=== PATIENT | male | born 1950 | race Caucasian/White ===

== ENCOUNTER 2023-10-03 21:05 | Observation (INO) | payer OTHER ==
[2023-10-03 22:05] LABS: VENOUS O2 SATURATION 91.8 % (70-80); VENOUS PH 7.382 (7.310-7.410)
[2023-10-03 22:07] LABS: BASO % 0.4 % (0-2.0); EOS % 0.1 % (0-4.5); HEMATOCRIT 47.4 % (35.4-49); HEMOGLOBIN 15.6 GM/dL (11.7-16.9); MCH 29.8 pg (25.7-33.7); MCHC 32.8 g/dl (32.0-35.9); MEAN CELL VOLUME 90.6 fl (80-96); MEAN PLT VOLUME 9.2 fl (7.5-11.1); NEUT % 69.5 % (42.8-82.8); PLATELET COUNT 208 10^3/uL (134-434); RBC 5.23 M/mm3 (4.00-5.60); RDW 14.2 % (11.9-15.9); WHITE BLOOD COUNT 7.7 K/mm3 (4.0-10.0)
[2023-10-03 22:16] LABS: INR 0.98 (0.83-1.09); PROTHROMBIN TIME (PATIENT) 11.1 SEC (9.7-13.0)
[2023-10-03 22:19] LABS: ACTIVATED PTT 31.1 SECONDS (25.2-36.5)
[2023-10-03 22:29] LABS: POTASSIUM 4.4 mmol/L (3.5-5.1)
[2023-10-03 22:30] LABS: CALCIUM 10.1 mg/dL (8.5-10.1)
[2023-10-03 22:31] LABS: ALBUMIN 4.1 g/dl (3.4-5.0); BLOOD UREA NITROGEN 25.5 mg/dL (7-18); MAGNESIUM 1.8 mg/dL (1.8-2.4)
[2023-10-03 22:34] LABS: CREATININE 1.9 mg/dL (0.55-1.3)
[2023-10-03 22:36] LABS: BILIRUBIN,TOTAL 0.6 mg/dL (0.2-1)
[2023-10-03] MEDS ORDERED: DEXAMETHASONE SOD PHOSPHATE 10 MG/1 ML VIAL ONE (22:49)
[2023-10-03] MEDS: DEXAMETHASONE SOD PHOSPHATE 20 MG/5 ML VIAL IVPB ONE (22:53)
[2023-10-03] MEDS: SODIUM CHLORIDE 0.9% 500 ML INFUS.BAG IV ONE (23:31)
[2023-10-04 00:17] LABS: PH,URINE 5.5 (5.0-8.0); URINE APPEARANCE CLEAR; URINE BILIRUBIN NEGATIVE (NEGATIVE); URINE COLOR YELLOW; URINE GLUCOSE (UA) 3+ (NEGATIVE); URINE KETONE 1+ (NEGATIVE); URINE LEUK ESTERASE NEGATIVE (NEGATIVE); URINE NITRITE NEGATIVE (NEGATIVE); URINE PROTEIN TRACE (NEGATIVE); URINE UROBILINOGEN 0.2 mg/dL (0.2-1.0)
[2023-10-04] MEDS: LACTATED RINGERS SOLUTION 1,000 ML/1,000 ML INFUS.BAG IV SCH (02:45)
[2023-10-04] MEDS: REMDESIVIR 200 MG in SODIUM CHLORIDE 250 ML IVPB ONE (04:03)
[2023-10-04] MEDS: HEPARIN NA (PORCINE) 5,000 UNITS/ML 1ML VIAL SQ SCH (06:28)
[2023-10-04] MEDS: INSULIN ASPART SLIDING SCALE (NOVOLOG) 1 VIAL SQ SCH (06:29)
[2023-10-04] MEDS: INSULIN (NOVOLOG) ASPART 100 UNITS/ML 10ML VIAL SQ SCH ×2 (06:29→11:43)
[2023-10-04 06:46] LABS: BASO % 0.4 % (0-2.0); HEMATOCRIT 43.3 % (35.4-49); HEMOGLOBIN 14.3 GM/dL (11.7-16.9); LYMPH % 16.4 % (8-40); MCH 29.8 pg (25.7-33.7); MEAN CELL VOLUME 90.3 fl (80-96); MEAN PLT VOLUME 9.6 fl (7.5-11.1); MONO % 2.9 % (3.8-10.2); NEUT % 80.3 % (42.8-82.8); PLATELET COUNT 177 10^3/uL (134-434); RBC 4.79 M/mm3 (4.00-5.60); RDW 14.4 % (11.9-15.9); WHITE BLOOD COUNT 5.7 K/mm3 (4.0-10.0)
[2023-10-04 06:50] LABS: POTASSIUM 4.8 mmol/L (3.5-5.1)
[2023-10-04 06:54] LABS: CALCIUM 9.1 mg/dL (8.5-10.1)
[2023-10-04 06:55] LABS: ALBUMIN 3.5 g/dl (3.4-5.0); BLOOD UREA NITROGEN 30.4 mg/dL (7-18)
[2023-10-04 06:56] LABS: MAGNESIUM 1.7 mg/dL (1.8-2.4)
[2023-10-04 06:58] LABS: CREATININE 1.9 mg/dL (0.55-1.3); PHOSPHOROUS 3.1 mg/dL (2.5-4.9)
[2023-10-04 06:59] LABS: BILIRUBIN,TOTAL 0.4 mg/dL (0.2-1); TOT PROT 6.8 g/dl (6.4-8.2)
[2023-10-04] MEDS: FINASTERIDE 5 MG TABLET (FP) PO SCH (09:57)
[2023-10-04] MEDS: TAMSULOSIN HCL 0.4 MG CAP PO SCH (09:57)
[2023-10-04] MEDS: LABETALOL HCL 100 MG TABLET (FP) PO SCH (09:57)
[2023-10-04] MEDS ORDERED: INSULIN (NOVOLOG) ASPART 100 UNITS/ML 10ML VIAL ONE ×2 (11:41→16:51)
[2023-10-04 17:25] VITALS: BMI 27.7
[2023-10-04] MEDS: INSULIN (LEVEMIR) 100 UNITS/ML UNITS SQ SCH (21:15)
[2023-10-04] MEDS: DEXAMETHASONE SOD PHOSPHATE 10 MG/1 ML VIAL IVPUSH SCH ×2 (21:15→21:56)
[2023-10-04] MEDS: DONEPEZIL HCL 5 MG TABLET (FP) PO SCH (21:19)
[2023-10-04] MEDS: ROSUVASTATIN CA 40 MG TABLET PO SCH (21:19)
[2023-10-04 21:49] LABS: URINE APPEARANCE CLEAR; URINE BILIRUBIN NEGATIVE (NEGATIVE); URINE COLOR YELLOW; URINE GLUCOSE (UA) 3+ (NEGATIVE); URINE KETONE TRACE (NEGATIVE); URINE LEUK ESTERASE NEGATIVE (NEGATIVE); URINE NITRITE NEGATIVE (NEGATIVE); URINE PROTEIN NEGATIVE (NEGATIVE); URINE UROBILINOGEN 0.2 mg/dL (0.2-1.0)
[2023-10-04] MEDS ORDERED: SIMETHICONE 40 MG/0.6 ML BOTTLE PO ONE (23:45)
[2023-10-05 07:45] LABS: BASO % 0.1 % (0-2.0); HEMATOCRIT 43.5 % (35.4-49); HEMOGLOBIN 14.6 GM/dL (11.7-16.9); LYMPH % 14.6 % (8-40); MCHC 33.5 g/dl (32.0-35.9); MEAN CELL VOLUME 89.5 fl (80-96); MEAN PLT VOLUME 9.8 fl (7.5-11.1); MONO % 4.4 % (3.8-10.2); NEUT % 80.9 % (42.8-82.8); PLATELET COUNT 190 10^3/uL (134-434); RBC 4.86 M/mm3 (4.00-5.60); RDW 14.3 % (11.9-15.9)
[2023-10-05 07:56] LABS: POTASSIUM 4.4 mmol/L (3.5-5.1)
[2023-10-05 07:58] LABS: CALCIUM 8.9 mg/dL (8.5-10.1)
[2023-10-05 07:59] LABS: ALBUMIN 3.4 g/dl (3.4-5.0); BLOOD UREA NITROGEN 43.8 mg/dL (7-18)
[2023-10-05 08:04] LABS: BILIRUBIN,TOTAL 0.3 mg/dL (0.2-1); TOT PROT 6.8 g/dl (6.4-8.2)
[2023-10-05] MEDS: REMDESIVIR 100 MG in SODIUM CHLORIDE 250 ML IVPB SCH (09:09)
[2023-10-05] MEDS: INSULIN (NOVOLOG) ASPART 100 UNITS/ML 10ML VIAL SQ SCH (12:09)
[2023-10-05] MEDS: ARTIFICIAL TEARS OPHTHALMIC DROPS OU PRN (21:27)
[2023-10-05] MEDS: LABETALOL HCL 100 MG TABLET (FP) PO SCH (21:28)
[2023-10-06] MEDS: ALBUTEROL SO4 2.5/IPRATROPIUM 0.5 INH SOL 3 ML VIAL.NEB. NEB PRN (06:33)
[2023-10-06 06:57] LABS: BASO % 0.5 % (0-2.0); EOS % 1.1 % (0-4.5); HEMATOCRIT 42.4 % (35.4-49); LYMPH % 29.5 % (8-40); MCH 29.6 pg (25.7-33.7); MEAN CELL VOLUME 89.8 fl (80-96); MEAN PLT VOLUME 9.6 fl (7.5-11.1); MONO % 8.6 % (3.8-10.2); NEUT % 60.3 % (42.8-82.8); PLATELET COUNT 187 10^3/uL (134-434); RBC 4.72 M/mm3 (4.00-5.60); RDW 14.4 % (11.9-15.9); WHITE BLOOD COUNT 7.2 K/mm3 (4.0-10.0)
[2023-10-06 07:14] LABS: POTASSIUM 3.9 mmol/L (3.5-5.1)
[2023-10-06 07:15] LABS: CALCIUM 8.7 mg/dL (8.5-10.1)
[2023-10-06 07:16] LABS: BLOOD UREA NITROGEN 37.4 mg/dL (7-18)
[2023-10-06 07:19] LABS: CREATININE 1.8 mg/dL (0.55-1.3)
[2023-10-06] MEDS ORDERED: ALBUTEROL SO4 2.5/IPRATROPIUM 0.5 INH SOL 3 ML VIAL.NEB. NEB PRN (15:38)
[2023-10-06] MEDS ORDERED: ARTIFICIAL TEARS OPHTHALMIC DROPS OU PRN (15:38)
[2023-10-06] MEDS: INSULIN ASPART SLIDING SCALE (NOVOLOG) 1 VIAL SQ SCH (17:08)
[2023-10-06] MEDS: INSULIN (NOVOLOG) ASPART 100 UNITS/ML 10ML VIAL SQ SCH (17:10)
[2023-10-06] MEDS: DONEPEZIL HCL 5 MG TABLET (FP) PO SCH (21:52)
[2023-10-06] MEDS: INSULIN (LEVEMIR) 100 UNITS/ML UNITS SQ SCH (21:52)
[2023-10-06] MEDS: HEPARIN NA (PORCINE) 5,000 UNITS/ML 1ML VIAL SQ SCH (21:52)
[2023-10-06] MEDS: LABETALOL HCL 100 MG TABLET (FP) PO SCH (21:53)
[2023-10-06] MEDS: ROSUVASTATIN CA 40 MG TABLET PO SCH (22:36)
[2023-10-07 08:17] LABS: POTASSIUM 4.3 mmol/L (3.5-5.1)
[2023-10-07 08:19] LABS: BLOOD UREA NITROGEN 27.2 mg/dL (7-18); CALCIUM 8.7 mg/dL (8.5-10.1)
[2023-10-07 08:23] LABS: CREATININE 1.6 mg/dL (0.55-1.3)
[2023-10-07] MEDS: TAMSULOSIN HCL 0.4 MG CAP PO SCH (08:47)
[2023-10-07] MEDS: FINASTERIDE 5 MG TABLET (FP) PO SCH (10:29)
[2023-10-07 14:35] VITALS: BP 143/66; PULSE 67; RESP 19; TEMP 97.8
== END 2023-10-07 14:09 | disposition home health service (06) ==
LOC: JER 21:05 → INTOOBSV 23:24 → JERBED 23:24 → J2W 10-04 03:17 → J4S 10-06 14:44
PROVIDERS: ADMIT Internal Medicine; ATTEND Internal Medicine
PROC: 3E0F7GC Introduction of Other Therapeutic Substance into Respiratory Tract, Via Natural or Artificial Opening (ICD-10-PCS; principal; 2023-10-03)
PROC: 3E033GC Introduction of Other Therapeutic Substance into Peripheral Vein, Percutaneous Approach (ICD-10-PCS; 2023-10-03)
PROC: 3E013VG Introduction of Insulin into Subcutaneous Tissue, Percutaneous Approach (ICD-10-PCS; 2023-10-03)
PROC: 3E023GC Introduction of Other Therapeutic Substance into Muscle, Percutaneous Approach (ICD-10-PCS; 2023-10-03)
PROC: 3E0337Z Introduction of Electrolytic and Water Balance Substance into Peripheral Vein, Percutaneous Approach (ICD-10-PCS; 2023-10-03)
DX: U07.1 COVID-19 (principal); N17.9 Acute kidney failure, unspecified; E11.22 Type 2 diabetes mellitus with diabetic chronic kidney disease; I12.9 Hypertensive chronic kidney disease with stage 1 through stage 4 chronic kidney disease, or unspecified chronic kidney disease; N40.0 Benign prostatic hyperplasia without lower urinary tract symptoms; N18.30 Chronic kidney disease, stage 3 unspecified
CPT/HCPCS: 0241U-QW; 36415; 70450-TC; 71045-TC-FY; 76775-TC; 80048; 80053; 80061; 81003; 82436; 82570; 82803; 82962; 83036; 83605; 83735; 84100; 84133; 84300; 84436; 84443; 84484; 84540; 85025; 85610; 85730; 87086; 93005; 93010; 93306-TC; 94640; 96365; 96366; 96372; 96375; 97116-GP; 97161-GP; 99285-25; G0378; J0248; J1100; J1644